=== PATIENT | male | born 1995 | race Caucasian/White ===

== ENCOUNTER 2017-02-26 17:19 | Emergency (ER) | payer OTHER ==
[2017-02-26] MEDS ORDERED: TRUVADA 200 MG-300 MG TABLET PO ONE (17:20)
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
[2017-02-26] MEDS ORDERED: Nabi-Hb 5 ML IM ONE (18:01)
[2017-02-26] MEDS ORDERED: TRUVADA 200 MG-300 MG TABLET PO STA (18:01)
[2017-02-26] MEDS ORDERED: TRUVADA 200 MG-300 MG TABLET ONE (18:10)
[2017-02-26] MEDS ORDERED: ISENTRESS ONE (18:10)
[2017-02-26] MEDS ORDERED: ISENTRESS PO SCH ×2 (18:15→22:00)
[2017-02-26 18:48] VITALS: BP 118/69; PULSE 90; O2SAT 99
[2017-02-27] MEDS ORDERED: TRUVADA 200 MG-300 MG TABLET PO SCH (10:00)
[2017-02-28 10:40] LABS: HIV Antigen/Antibody Combo Non Reactive (Non Reactive)
[2017-03-01 11:06] LABS: Hepatitis B Surface Ab.Quant <3.50 mIU/mL (0.00-8.49); Hepatitis C Antibody by EIA Non Reactive (Non Reactive)
[2017-03-01 11:07] LABS: Hepatitis B Sur Ag Screen Non Reactive (Non Reactive)
== END 2017-02-26 18:47 | disposition home or self-care (01) ==
LOC: ED 17:19
DX: Z77.21 Contact with and (suspected) exposure to potentially hazardous body fluids (principal); X58.XXXA Exposure to other specified factors, initial encounter; Y99.0 Civilian activity done for income or pay
CPT/HCPCS: 36415; 86317; 86701; 86702; 86803; 87340; 87389; 96372; 99284; J1571; A9270-GY

== ENCOUNTER 2019-10-23 03:21 | Emergency (ER) | payer OTHER ==
[2019-10-23] MEDS ORDERED: Sodium Chloride 0.9% 1000 ML 1,000 ML IV STA (03:31)
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
[2019-10-23 04:01] LABS: Absolute Neutrophil Ct (ANC) 3.27 (1.4-6.9); BASOPHIL % 0.4 % (0.0-0.4); Basophil (Absolute #) 0.03 (0-0.4); Eosinophil (Absolute #) 0.07 (0-0.5); Hematocrit 44.4 % (42-50); Hemoglobin 14.8 gm/dl (12.5-18.0); Lymphocyte (Absolute #) 2.63 (1.0-4.6); Lymphocytes % 39.4 % (24.0-44.0); Mean Cell Volume 97.2 fl (78-100); Mean Corpuscular Hemoglobin 32.4 pg (26-32); Mean Corpuscular Hgb Concent. 33.3 g/dl (32-36); Mean Platelet Volume 9.7 fl (7.5-11.0); Monocyte (Absolute #) 0.67 (0.0-1.3); Neutrophil % 49.2 % (36.0-66.0); Platelet Count 203 K/mm3 (150-450); Red Blood Count 4.57 M/mm3 (4.1-5.6); Red Cell Distribution Width 12.5 % (11.5-14.0); White Blood Count 6.7 K/mm3 (4.0-10.5)
[2019-10-23 04:08] LABS: ALBUMIN 4.5 g/dL (3.5-5.0); ALKALINE PHOSPHATASE 107 U/L (38-126); ANION GAP 13.5 MEQ/L (5-15); BLOOD UREA NITROGEN 12 mg/dL (9-20); CHLORIDE 100 mmol/L (98-107); Calcium 9.2 mg/dL (8.4-10.2); Carbon Dioxide 29 mmol/L (22-30); Creatinine 1 1.11 mg/dL (0.66-1.25); EST GLOMERULAR FILTRATION RATE > 60.0 ML/MIN; Glucose 104 mg/dL (74-106); Potassium 3.8 mmol/L (3.5-5.1); SGOT/AST 20 U/L (17-59); SGPT/ALT 14 U/L (0-50); SODIUM 139 mmol/L (137-145); Total Protein 7.3 g/dL (6.3-8.2)
[2019-10-23 04:11] LABS: Appearance CLEAR (CLEAR); Bilirubin NEGATIVE (NEGATIVE); Blood NEGATIVE Ery/ul (0-5); Glucose NEGATIVE (NEGATIVE); Ketones NEGATIVE (NEGATIVE); Leukocyte Esterase NEGATIVE (NEGATIVE); Mucus SLIGHT /HPF (NEGATIVE); Nitrite NEGATIVE (NEGATIVE); Protein,Urine Dip NEGATIVE (Negative); Specific Gravity 1.013 (1.005-1.025); Urobilinogen NEGATIVE mg/dL (0-1); WBC 0-2 /HPF (0-5)
[2019-10-23 05:11] VITALS: BP 123/84; PULSE 63
[2019-10-23] MEDS ORDERED: BACIGUENT PACKET ONE (05:17)
[2019-10-23] MEDS ORDERED: BACIGUENT PACKET TP ONE (05:24)
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
[2019-10-27 09:24] VITALS: O2SAT 99
== END 2019-10-23 05:16 | disposition home or self-care (01) ==
LOC: ED 03:21
DX: S00.83XA Contusion of other part of head, initial encounter (principal); S50.12XA Contusion of left forearm, initial encounter; S60.222A Contusion of left hand, initial encounter; V89.2XXA Person injured in unspecified motor-vehicle accident, traffic, initial encounter; Y93.89 Activity, other specified; Y92.89 Other specified places as the place of occurrence of the external cause; Y99.0 Civilian activity done for income or pay; S00.81XA Abrasion of other part of head, initial encounter; M79.642 Pain in left hand; M25.532 Pain in left wrist
CPT/HCPCS: 36415; 70450; 71045; 72125; 73090; 73130; 80053; 81001; 84484; 85025; 93005; 99285; L3908; A9270-GY

== ENCOUNTER 2020-02-17 21:27 | Emergency (ER) | payer OTHER ==
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
[2020-02-17 21:39] VITALS: O2SAT 98
[2020-02-17 22:07] VITALS: BP 136/80; PULSE 98
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
== END 2020-02-17 22:10 | disposition home or self-care (01) ==
LOC: ED 21:27
DX: S62.640A Nondisplaced fracture of proximal phalanx of right index finger, initial encounter for closed fracture (principal)
CPT/HCPCS: 73140; 99283